=== PATIENT | female | born 1935 | race Caucasian/White ===

== ENCOUNTER → 2025-05-31 | Emergency (ER) | payer MEDICARE ==
[~2025-05-31] VITALS: Ht 162.6 cm; Wt 81.2 kg
[~2025-05-31] MED LIST: ACETAMINOPHEN 325 MG TABLET ONE; ACETAMINOPHEN W/ CODEINE#3 1 EA TABLET ONE; ACETAMINOPHEN W/ CODEINE#3 1 EA TABLET PO ONE; KETOROLAC TROMETHAMINE INJ 30 MG/ML VIAL ONE
[2025-05-31] MEDS: ACETAMINOPHEN 325 MG TABLET PO ONE (23:15)
[2025-06-01] MEDS: KETOROLAC TROMETHAMINE INJ 30 MG/ML VIAL IM ONE (00:04)
[2025-06-01 00:56] VITALS: BP 142/78; TEMP 98.6; O2SAT 97
== END | disposition home or self-care (01) ==
LOC: ER 22:16
DX: S42.202A Unspecified fracture of upper end of left humerus, initial encounter for closed fracture (principal); I10 Essential (primary) hypertension; E78.5 Hyperlipidemia, unspecified; E11.9 Type 2 diabetes mellitus without complications; M19.90 Unspecified osteoarthritis, unspecified site; Z91.048 Other nonmedicinal substance allergy status; Z60.2 Problems related to living alone; W01.0XXA Fall on same level from slipping, tripping and stumbling without subsequent striking against object, initial encounter; Y93.89 Activity, other specified; Y92.009 Unspecified place in unspecified non-institutional (private) residence as the place of occurrence of the external cause; Y99.8 Other external cause status
CPT/HCPCS: 99284; 96372; 72170; 73060; J1885